=== PATIENT | male | born 1975 | race Caucasian/White ===

== ENCOUNTER 2022-04-01 03:58 | Day surgery (SDC) | payer OTHER ==
[2022-03-28 15:40] VITALS: BMI 28.1
[2022-04-01 12:44] VITALS: RESP 18
[2022-04-01] MEDS ORDERED: MIDAZOLAM HCL 2 MG/2 ML SINGLE DOSE VIAL ONE (15:53)
[2022-04-01] MEDS ORDERED: KETAMINE HCL 500 MG/10 ML VIAL ONE (16:03)
[2022-04-01 17:31] VITALS: BP 125/77; PULSE 65; TEMP 98.2
== END 2022-04-01 17:45 | disposition home or self-care (01) ==
LOC: JASU-SURG 03:58
PROVIDERS: ATTEND Urology
PROC: 0TF3XZZ Fragmentation in Right Kidney Pelvis, External Approach (ICD-10-PCS; principal; 2022-04-01 14:30)
DX: N20.0 Calculus of kidney (principal)

== ENCOUNTER 2023-07-21 04:33 | Day surgery (SDC) | payer OTHER ==
[2023-07-17 16:32] VITALS: BMI 28.1
[2023-07-21 15:29] VITALS: RESP 18
[2023-07-21] MEDS ORDERED: ONDANSETRON 4 MG/2 ML VIAL ONE (17:28)
[2023-07-21] MEDS ORDERED: MIDAZOLAM HCL 2 MG/2 ML SINGLE DOSE VIAL ONE (17:42)
[2023-07-21] MEDS ORDERED: PROPOFOL 20 ML ONE (18:19)
[2023-07-21 19:45] VITALS: BP 130/88; PULSE 74; TEMP 97.5
== END 2023-07-21 19:45 | disposition home or self-care (01) ==
LOC: JASU-SURG 04:33
PROVIDERS: ATTEND Urology
PROC: 0TF3XZZ Fragmentation in Right Kidney Pelvis, External Approach (ICD-10-PCS; principal; 2023-07-21 17:00)
DX: N20.0 Calculus of kidney (principal)